=== PATIENT | female | born 1970 | race African-American/Black ===

== ENCOUNTER 2018-09-12 13:26 | Emergency (ER) | payer BC ==
[~2018-09-12] VITALS: Ht 167.6 cm; Wt 92.0 kg
[2018-09-12] MEDS ORDERED: KETOROLAC 15MG/ML VIAL IM ONE (14:45)
[2018-09-12] MEDS ORDERED: HYDROCODONE/ACETAMINOPHEN 5/325MG TABLET PO ONE (15:15)
[2018-09-12 16:43] VITALS: BP 148/83
== END 2018-09-12 16:46 | disposition home or self-care (01) ==
LOC: ER 13:26
DX: R07.81 Pleurodynia (principal); J45.909 Unspecified asthma, uncomplicated; E11.9 Type 2 diabetes mellitus without complications; I10 Essential (primary) hypertension; W10.1XXA Fall (on)(from) sidewalk curb, initial encounter; Y93.89 Activity, other specified; Y92.89 Other specified places as the place of occurrence of the external cause; Y99.8 Other external cause status
CPT/HCPCS: 71045; 93005; 96372; 99284; J1885